=== PATIENT | female | born 2000 | race Caucasian/White ===

== ENCOUNTER 2020-03-15 15:52 | Emergency (ER) | payer OTHER ==
[~2020-03-15] VITALS: Ht 160 cm; Wt 68.0 kg
[2020-03-15 16:00] VITALS: BP 129/76
--- NOTE | 2020-03-15 16:00 | NUR ---
ED Nurse Note: PT WAS BROUGHT BY REHAB STAFF DUE TO ABD PAIN WITH N/V X 1WEEK. PT IS AOX4, CALM AND COOPERATIVE, NOTED INITIAL HR 130BPM, PLACED ON BED AND GOWN; BLOOD AND URINE COLLECTED; SENT TO LABS. SAFETY MEASURES IN PLACED. WILL CONTINUE TO MONITOR.
[2020-03-15] MEDS ORDERED: SUBOXONE 2 MG-1 EACH SL (16:01)
--- NOTE | 2020-03-15 16:20 | NUR ---
ED Nurse Note: Blood and urine specimen collected, sent to labs.
--- NOTE | 2020-03-15 16:23 | Emergency Room Report ---
History of Present Illness General Chief Complaint: Abdominal Pain Source: Patient Present Illness HPI 27-year-old female presents to the emergency department complaining of nausea, vomiting and diarrhea x1 week. Patient estimates about having about 4 episodes of diarrhea and 2 of vomiting per day. Patient states she is not sure if she is or not. She does report intermittent 8 out of 10 severity abdominal pain that is diffuse and not localized. She denies fevers she reports chills. She denies urinary frequency, urgency, dysuria or hematuria. She denies taking any medications for her symptoms. Patient states she is currently on Suboxone. No other aggravating or relieving factors. Pt. denies pain or tenderness at the moment. She states she last vomited just before arriving here. Denies intentional intoxication. Allergies: Coded Allergies: VANCOMYCIN (Verified Allergy, Unknown, 03/15/20) COVID-19 Screening Contact w/high risk pt: No Recent Travel to affected area: No Experienced COVID-19 symptoms?: No Patient History Past Medical History: see triage record Past Surgical History: other - Heart surgery Pertinent Family History: none Last Menstrual Period: JANUARY 2020 Now: No Reviewed Nursing Documentation: PMH: Agreed; PSxH: Agreed Nursing Documentation-PMH Past Medical History: No History, Except For Review of Systems All Other Systems: negative except mentioned in HPI Physical Exam Vital Signs Date Time Temp Pulse Resp B/P (MAP) Pulse Ox O2 Delivery O2 Flow Rate FiO2 03/15/20 15:57 98.2 135 18 129/76 (93) 96 Room Air Sp02 EP Interpretation: reviewed, normal General Appearance: no apparent distress, alert, GCS 15, non-toxic Head: normocephalic, atraumatic Eyes: bilateral eye normal inspection, bilateral eye PERRL ENT: hearing grossly normal, normal voice Neck: full range of motion Respiratory: chest non-tender, lungs clear, normal breath sounds, speaking full sentences Cardiovascular #1: regular rate, rhythm, tachycardia Gastrointestinal: normal bowel sounds, non tender, soft, no peritonitis, non- distended, no guarding Genitourinary: normal inspection, no CVA tenderness Musculoskeletal: back normal, normal range of motion, gait/station normal, non- tender Neurologic: alert, motor strength/tone normal, oriented x3, sensory intact, responsive, speech normal Psychiatric: judgement/insight normal Skin: normal color Lymphatic: no adenopathy Medical Decision Making PA Attestation Dr. Bell is my supervising Physician whom patient management has been discussed with. Diagnostic Impression: Primary Impression: UTI (urinary tract infection) Qualified Codes: N30.01 - Acute cystitis with hematuria Additional Impressions: Abdominal pain Qualified Codes: R10.84 - Generalized abdominal pain Vomiting and diarrhea Dehydration ER Course 27-year-old female presents to the emergency department complaining of nausea, vomiting and diarrhea x1 week. Patient estimates about having about 4 episodes of diarrhea and 2 of vomiting per day. Patient states she is not sure if she is or not. She does report intermittent 8 out of 10 severity abdominal pain that is diffuse and not localized. She denies fevers she reports chills. She denies urinary frequency, urgency, dysuria or hematuria. She denies taking any medications for her symptoms. Patient states she is currently on Suboxone. No other aggravating or relieving factors. Pt. denies pain or tenderness at the moment. She states she last vomited just before arriving here. Denies intentional intoxication. Ddx considered but are not limited to Diverticulitis, acute appendicitis, diarrhea,UC, PUD, GE, pancreatitis, gallstone, ovarian torsion, ectopic , COVID-19, PID tubo-ovarian abscess. Vital signs: Pt. is TACHYCARDIC , pt. is afebrile H&PE are most consistent with: dehydration. no evidence of acute abdomen on exam. Pt. is non-toxic in appearance. ORDERS: -CBC, CMP, LIPASE: ELEVATED LIVER enzymes and Anion Gap. mildly elevated WBC's -UA: indicative for UTI -URINE HCG: negative ED INTERVENTIONS: -1 Liter NS x 2 - 4mg Zofran IV -15mg Toradol - Rocephin 1g IV -Bentyl PO Pt. feeling better, able to tolerate oral fluids and PO Meds. D/w pt. will treat as an outpatient with very close outpatient primary follow up. Encouraged pt. to seek specialty eval. for further testing and possible pharmacological management of her Hep. C. DISCHARGE: At this time pt. is stable for d/c to home. Will provide printed patient care instructions, and any necessary prescriptions. Care plan and follow up instructions have been discussed with the patient prior to discharge. Labs Test 03/15/20 16:00 03/15/20 17:35 White Blood Count 12.5 K/UL (4.8-10.8) Red Blood Count 5.46 M/UL (4.20-5.40) Hemoglobin 15.4 G/DL (12.0-16.0) Hematocrit 48.7 % (37.0-47.0) Mean Corpuscular Volume 89 FL (80-99) Mean Corpuscular Hemoglobin 28.1 PG (27.0-31.0) Mean Corpuscular Hemoglobin Concent 31.5 G/DL (32.0-36.0) Red Cell Distribution Width 12.4 % (11.6-14.8) Platelet Count 251 K/UL (150-450) Mean Platelet Volume 8.3 FL (6.5-10.1) Neutrophils (%) (Auto) 61.5 % (45.0-75.0) Lymphocytes (%) (Auto) 30.3 % (20.0-45.0) Monocytes (%) (Auto) 4.5 % (1.0-10.0) Eosinophils (%) (Auto) 2.6 % (0.0-3.0) Basophils (%) (Auto) 1.1 % (0.0-2.0) Urine Color Yellow Urine Appearance Slightly cloudy Urine pH 5 (4.5-8.0) Urine Specific [place] 1.025 (1.005-1.035) Urine Protein 2+ (NEGATIVE) Urine Glucose (UA) Negative (NEGATIVE) Urine Ketones 3+ (NEGATIVE) Urine Blood Negative (NEGATIVE) Urine Nitrite Negative (NEGATIVE) Urine Bilirubin Negative (NEGATIVE) Urine Urobilinogen 1 MG/DL (0.0-1.0) Urine Leukocyte Esterase 1+ (NEGATIVE) Urine RBC 0-2 /HPF (0 - 2) Urine WBC 5-10 /HPF (0 - 2) Urine Squamous Epithelial Cells Many /LPF (NONE/OCC) Urine Amorphous Sediment Few /LPF (NONE) Urine Bacteria Many /HPF (NONE) Urine HCG, Qualitative Negative (NEGATIVE) Sodium Level 140 MMOL/L (136-145) Potassium Level 4.7 MMOL/L (3.5-5.1) Chloride Level 102 MMOL/L (98-107) Carbon Dioxide Level 20 MMOL/L (21-32) Anion Gap 18 mmol/L (5-15) Blood Urea Nitrogen 13 mg/dL (7-18) Creatinine 0.6 MG/DL (0.55-1.30) Estimat Glomerular Filtration Rate > 60 mL/min (>60) Glucose Level 113 MG/DL (74-106) Calcium Level 9.5 MG/DL (8.5-10.1) Total Bilirubin 1.2 MG/DL (0.2-1.0) Direct Bilirubin 0.3 MG/DL (0.0-0.3) Aspartate Amino Transf (AST/SGOT) 240 U/L (15-37) Alanine Aminotransferase (ALT/SGPT) 211 U/L (12-78) Alkaline Phosphatase 213 U/L (46-116) Total Protein 8.9 G/DL (6.4-8.2) Albumin 4.5 G/DL (3.4-5.0) Globulin 4.4 g/dL Albumin/Globulin Ratio 1.0 (1.0-2.7) Lipase 103 U/L (73-393) Salicylates Level < 0.2 ug/mL (2.8-20) Acetaminophen Level < 2 MCG/ML (10-30) Serum Alcohol < 3 mg/dL Last Vital Signs Date Time Temp Pulse Resp B/P (MAP) Pulse Ox O2 Delivery O2 Flow Rate FiO2 03/15/20 15:57 98.2 135 18 129/76 (93) 96 Room Air Disposition: HOME, SELF-CARE Condition: Stable Scripts Dicyclomine Hcl* (DICYCLOMINE HCL*) 10 Mg Capsule 10 MG ORAL TID, #10 CAP Prov: Aissatou Rutherford 03/15/20 Ondansetron Odt* (ZOFRAN ODT*) 4 Mg Tab.rapdis 4 MG BC EVERY 6 HOURS PRN for Nausea & Vomiting, #10 TAB 0 Refills Prov: Aissatuo Rutherford 03/15/20 Trimethoprim/Sulfamethoxazole 160/800* (BACTRIM DS TABLET*) 1 Each Tablet 1 TAB ORAL TWICE A DAY for 7 Days, #14 TAB Prov: Aissatou Rutherford 03/15/20 Referrals: [facility] Patient Instructions: Abdominal Pain, Adult, Diarrhea, Adult, [id number], Food Choices to Help Relieve Diarrhea, Adult, Nausea and Vomiting, Adult, Easy- to-Read, Urinary Tract Infection, [id number] Additional Instructions: Return sooner to ED if new symptoms occur, or current symptoms become worse. _- - Fevers, Chills, unable to stay hydrated, or new symptoms occur. Take medications as directed. Follow up with a Primary Care Provider in 3-5 days, even if your symptoms have resolved. LIVER SPECIALIST FOR MANAGEMENT OF HEPATITIS and ELEVATED LIVER ENZYMES. --Please review list of primary care clinics, if you do not already have a primary care provider - Please note that this Emergency Department Report was dictated using [employer] technology software, occasionally this can lead to erroneous entry secondary to interpretation by the dictation equipment. Aissatou Rutherford Mar 15, 2020 16:23
[2020-03-15 16:57] LABS: APPEARANCE,URINE SLIGHTLY CLOUDY; BILIRUBIN, URINE NEGATIVE (NEGATIVE); GLUCOSE, URINE (UA) NEGATIVE (NEGATIVE); KETONES,URINE 3+ (NEGATIVE); LEUKOCYTE ESTERASE ,URINE 1+ (NEGATIVE); NITRITE,URINE NEGATIVE (NEGATIVE); PH,URINE 5 (4.5-8.0); PROTEIN,URINE 2+ (NEGATIVE); UROBILINOGEN,URINE 1 MG/DL (0.0-1.0)
[2020-03-15 17:01] LABS: ANION GAP 18 mmol/L (5-15); BASOPHILS % (AUTO) 1.1 % (0.0-2.0); BLOOD UREA NITROGEN 13 mg/dL (7-18); CALCIUM 9.5 MG/DL (8.5-10.1); CARBON DIOXIDE 20 MMOL/L (21-32); CHLORIDE 102 MMOL/L (98-107); CREATININE 0.6 MG/DL (0.55-1.30); EOSINOPHILS % (AUTO) 2.6 % (0.0-3.0); HEMATOCRIT 48.7 % (37.0-47.0); HEMOGLOBIN 15.4 G/DL (12.0-16.0); LYMPHOCYTES % (AUTO) 30.3 % (20.0-45.0); MEAN CORPUSCULAR VOLUME 89 FL (80-99); MONOCYTES % (AUTO) 4.5 % (1.0-10.0); NEUTROPHILS % (AUTO) 61.5 % (45.0-75.0); PLATELET COUNT 251 K/UL (150-450); POTASSIUM 4.7 MMOL/L (3.5-5.1); RED BLOOD COUNT 5.46 M/UL (4.20-5.40); RED CELL DISTRIBUTION WIDTH 12.4 % (11.6-14.8); SODIUM 140 MMOL/L (136-145); WHITE BLOOD COUNT 12.5 K/UL (4.8-10.8)
[2020-03-15 17:03] LABS: COLOR,URINE YELLOW
[2020-03-15 17:11] LABS: ALANINE AMINOTRANSFERASE 211 U/L (12-78); ALBUMIN 4.5 G/DL (3.4-5.0); ALKALINE PHOSPHATASE 213 U/L (46-116); ASPARTATE AMINO TRANSFERASE 240 U/L (15-37); BILIRUBIN,TOTAL 1.2 MG/DL (0.2-1.0)
[2020-03-15 17:12] LABS: BILIRUBIN,DIRECT 0.3 MG/DL (0.0-0.3)
[2020-03-15 17:52] VITALS: BP 118/78
[2020-03-15] MEDS ORDERED: Ketorolac 30mg Inj IV ONE (18:30)
[2020-03-15] MEDS ORDERED: cefTRIAXone 1 GM in NS 55 ML IVPB ONE (18:45)
--- NOTE | 2020-03-15 19:10 | NUR ---
ED Nurse Note: Hand off given to MARTA Camp for continuity of care.
[2020-03-15 19:11] VITALS: BP 121/79
--- NOTE | 2020-03-15 19:11 | NUR ---
ED Nurse Note: Received report from Amber LOZANO. Pt alert and alert x4, verbally responsive. Not in any distress. Will cont to monitor.
[2020-03-15] MEDS ORDERED: BACTRIM DS TAB1 EAC1 ORAL (19:14)
[2020-03-15] MEDS ORDERED: DICYCLOMINE HCL10 MG ORAL (19:14)
[2020-03-15] MEDS ORDERED: ONDANSETRON ODT4 MG BC (19:14)
[2020-03-15] MEDS ORDERED: Dicyclomine HCl 10mg/5ml oral soln ORAL ONE (19:15)
[2020-03-15 19:44] VITALS: BP 118/72
--- NOTE | 2020-03-15 19:44 | NUR ---
ED Nurse Note: Pt cleared by ERMD for discharge. DC instructions/prescription was given and explained to pt and verbalized understanding of teachings. All medical deviecs such as ID band and IV line removed. Pt is AAO x4, ambulatory and left with all personal belongings.
== END 2020-03-15 19:44 | disposition home or self-care (01) ==
LOC: EMR 16:15
DX: N30.01 Acute cystitis with hematuria (principal); R10.84 Generalized abdominal pain; R11.10 Vomiting, unspecified; R19.7 Diarrhea, unspecified; E86.0 Dehydration; Z88.8 Allergy status to other drugs, medicaments and biological substances; R00.0 Tachycardia, unspecified
CPT/HCPCS: 36415; 80053; 80307; 81003; 81025; 82248; 83690; 85025; 87086; 96361; 96365; 96375; G0480; G0481; J0696; J1885; J2405; J7030; Z7502; 99284

== ENCOUNTER 2020-04-19 15:12 | Emergency (ER) | payer BC, OTHER ==
[~2020-04-19] VITALS: Ht 160 cm; Wt 63.5 kg
[~2020-04-19 15:12] MED LIST: BACTRIM DS TAB1 EAC1 ORAL; DICYCLOMINE HCL10 MG ORAL; ONDANSETRON ODT4 MG BC; SUBOXONE 2 MG-1 EACH SL
--- NOTE | 2020-04-19 15:19 | NUR ---
ED Nurse Note: Patient walked in the ER from home with complaints of nausea, dizziness and vomiting. Patient stated she had vomiting 40x in 3 days. Patient is AAOx4 and ambulatory. No episodes of vomiting noted as of the moment.
[2020-04-19 15:20] VITALS: BP 118/63
--- NOTE | 2020-04-19 15:20 | NUR ---
ED Nurse Note: ERMD at bedside
--- NOTE | 2020-04-19 15:42 | Emergency Room Report ---
History of Present Illness General Chief Complaint: Nausea, Vomiting, and Diarrhea Source: Patient Present Illness HPI Disclaimer: Please note that this report is being documented using DRAGON technology. This can lead to erroneous entry secondary to incorrect interpretation by the dictating instrument. HPI: 19-year-old female presents for evaluation of abdominal cramping and vomiting. Symptoms present 2 to 3 days. She reports starting her period 2 to 3 days ago followed by lower pelvic cramping. Denies significant bleeding and states this period is light. LMP was 1 month ago. The patient does not use barrier contraception or concentration medication is sexually active. Denies vaginal discharge or pain with intercourse. Reports persistent nausea intermittent vomiting. She has felt intermittently lightheaded though not currently. She is in a Suboxone program for opiate abuse and has not missed any doses. She denies fevers, chills, palpitations, chest pain, cough, diarrhea. 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 EOMI. Resp: Normal work of breathing Abdomen: Soft, nondistended. Bilateral lower quadrant suprapubic tenderness, minimal. No masses, no rebound Skin: Intact. No abrasions, laceration or rash over the exposed skin MSK: Normal tone and bulk. Moving all extremities. No obvious deformity. Neuro: Awake and alert. Mentating appropriately Back: No flank tenderness Medical Decision Making Diagnostic Impression: Primary Impression: Vomiting ER Course 19-year-old female presents for evaluation of lower pelvic cramping 2 days of vomiting. Differential includes was not limited to UTI, pyelonephritis, gastritis, gastroenteritis, pancreatitis, cholecystitis, to name a few. Patient was given antiemetics and broad labs were drawn. No significant findings on labs aside from elevated LFTs which are consistent with her prior visits and history of hepatitis C. No indication of an acute urinary tract infection and hCG is negative. Patient is positive for marijuana which she admits to. No vomiting or nausea in the emergency department this time will discharge with Zofran. Can follow-up with PMD and return with new or worsening symptoms. She understands and agrees with this treatment plan. Laboratory Tests Test 04/19/20 15:55 White Blood Count 8.1 K/UL (4.8-10.8) Red Blood Count 4.87 M/UL (4.20-5.40) Hemoglobin 14.0 G/DL (12.0-16.0) Hematocrit 43.6 % (37.0-47.0) Mean Corpuscular Volume 89 FL (80-99) Mean Corpuscular Hemoglobin 28.8 PG (27.0-31.0) Mean Corpuscular Hemoglobin Concent 32.2 G/DL (32.0-36.0) Red Cell Distribution Width 12.3 % (11.6-14.8) Platelet Count 176 K/UL (150-450) Mean Platelet Volume 8.1 FL (6.5-10.1) Neutrophils (%) (Auto) 77.6 % (45.0-75.0) H Lymphocytes (%) (Auto) 17.5 % (20.0-45.0) L Monocytes (%) (Auto) 3.6 % (1.0-10.0) Eosinophils (%) (Auto) 0.5 % (0.0-3.0) Basophils (%) (Auto) 0.8 % (0.0-2.0) Urine Color Yellow Urine Appearance Slightly cloudy Urine pH 5 (4.5-8.0) Urine Specific [place] 1.025 (1.005-1.035) Urine Protein 3+ (NEGATIVE) H Urine Glucose (UA) Negative (NEGATIVE) Urine Ketones 4+ (NEGATIVE) H Urine Blood 1+ (NEGATIVE) H Urine Nitrite Negative (NEGATIVE) Urine Bilirubin Negative (NEGATIVE) Urine Urobilinogen 4 MG/DL (0.0-1.0) H Urine Leukocyte Esterase Negative (NEGATIVE) Urine RBC 2-4 /HPF (0 - 2) H Urine WBC 0-2 /HPF (0 - 2) Urine Squamous Epithelial Cells Moderate /LPF (NONE/OCC) H Urine Bacteria Few /HPF (NONE) Urine HCG, Qualitative Negative (NEGATIVE) Sodium Level 138 MMOL/L (136-145) Potassium Level 4.0 MMOL/L (3.5-5.1) Chloride Level 100 MMOL/L (98-107) Carbon Dioxide Level 23 MMOL/L (21-32) Anion Gap 15 mmol/L (5-15) Blood Urea Nitrogen 9 mg/dL (7-18) Creatinine 0.8 MG/DL (0.55-1.30) Estimated Glomerular Filtration Rate > 60 mL/min (>60) Glucose Level 88 MG/DL (74-106) Calcium Level 9.0 MG/DL (8.5-10.1) Total Bilirubin 1.0 MG/DL (0.2-1.0) Aspartate Amino Transferase (AST) 157 U/L (15-37) H Alanine Aminotransferase (ALT) 207 U/L (12-78) H Alkaline Phosphatase 129 U/L (46-116) H Total Protein 8.1 G/DL (6.4-8.2) Albumin 4.2 G/DL (3.4-5.0) Globulin 3.9 g/dL Albumin/Globulin Ratio 1.1 (1.0-2.7) Lipase 68 U/L (73-393) L Urine Opiates Screen Negative (NEGATIVE) Urine Barbiturates Screen Negative (NEGATIVE) Phencyclidine (PCP) Screen Negative (NEGATIVE) Urine Amphetamines Screen Negative (NEGATIVE) Urine Benzodiazepines Screen Negative (NEGATIVE) Urine Cocaine Screen Negative (NEGATIVE) Urine Marijuana (THC) Screen Positive (NEGATIVE) H Last Vital Signs Date Time Temp Pulse Resp B/P (MAP) Pulse Ox O2 Delivery O2 Flow Rate FiO2 04/19/20 15:19 98.1 112 20 118/63 (81) 96 Room Air Disposition: HOME, SELF-CARE Condition: Stable Scripts Ondansetron Odt* (ZOFRAN ODT*) 4 Mg Tab.rapdis 4 MG BC EVERY 6 HOURS PRN for Nausea & Vomiting, #10 TAB 0 Refills Prov: South Horton MD 04/19/20 South Horton MD April 19, 2020 15:42
[2020-04-19 16:34] LABS: ANION GAP 15 mmol/L (5-15); BLOOD UREA NITROGEN 9 mg/dL (7-18); CARBON DIOXIDE 23 MMOL/L (21-32); CHLORIDE 100 MMOL/L (98-107); CREATININE 0.8 MG/DL (0.55-1.30); SODIUM 138 MMOL/L (136-145)
[2020-04-19 16:38] LABS: ALANINE AMINOTRANSFERASE 207 U/L (12-78); ALBUMIN 4.2 G/DL (3.4-5.0); ALBUMIN/GLOBULIN RATIO 1.1 (1.0-2.7); ALKALINE PHOSPHATASE 129 U/L (46-116); ASPARTATE AMINO TRANSFERASE 157 U/L (15-37)
[2020-04-19 17:05] LABS: BILIRUBIN, URINE NEGATIVE (NEGATIVE); GLUCOSE, URINE (UA) NEGATIVE (NEGATIVE); KETONES,URINE 4+ (NEGATIVE); LEUKOCYTE ESTERASE ,URINE NEGATIVE (NEGATIVE); NITRITE,URINE NEGATIVE (NEGATIVE); PH,URINE 5 (4.5-8.0); PROTEIN,URINE 3+ (NEGATIVE); UROBILINOGEN,URINE 4 MG/DL (0.0-1.0)
[2020-04-19 17:12] LABS: BASOPHILS % (AUTO) 0.8 % (0.0-2.0); EOSINOPHILS % (AUTO) 0.5 % (0.0-3.0); HEMATOCRIT 43.6 % (37.0-47.0); LYMPHOCYTES % (AUTO) 17.5 % (20.0-45.0); MEAN CORPUSCULAR VOLUME 89 FL (80-99); MONOCYTES % (AUTO) 3.6 % (1.0-10.0); NEUTROPHILS % (AUTO) 77.6 % (45.0-75.0); PLATELET COUNT 176 K/UL (150-450); RED BLOOD COUNT 4.87 M/UL (4.20-5.40); RED CELL DISTRIBUTION WIDTH 12.3 % (11.6-14.8); WHITE BLOOD COUNT 8.1 K/UL (4.8-10.8)
[2020-04-19 17:20] VITALS: BP 108/72
[2020-04-19 17:44] LABS: APPEARANCE,URINE SLIGHTLY CLOUDY; COLOR,URINE YELLOW
[2020-04-19] MEDS ORDERED: ONDANSETRON ODT4 MG BC (18:15)
--- NOTE | 2020-04-19 18:23 | NUR ---
ER DISCHARGE NOTE: Patient is cleared to be discharged per ERMD, pt is aox4, on room air, with stable vital signs. pt was given dc and prescription instructions, pt was able to verbalize understanding, pt id band and iv site removed without complications. Pt is able to ambulate with steady gait. pt took all belongings. Patient was picked up by her boyfriend at the waiting area.
[2020-04-19 18:35] VITALS: BP 108/76
== END 2020-04-19 18:23 | disposition home or self-care (01) ==
LOC: EMR 15:40
DX: R11.10 Vomiting, unspecified (principal); Z95.4 Presence of other heart-valve replacement; Z88.1 Allergy status to other antibiotic agents; F11.11 Opioid abuse, in remission; F12.90 Cannabis use, unspecified, uncomplicated
CPT/HCPCS: 36415; 80053; 80307; 81003; 81025; 83690; 85025; 96361; 96374; 96375; 99284; J2405; J7030; S0028